=== PATIENT | male | born 1975 | race Caucasian/White ===

== ENCOUNTER 2023-09-07 09:13 | Day surgery (SDC) | payer OTHER ==
[~2023-09-07] VITALS: Ht 170.2 cm; Wt 74.7 kg
[~2023-09-07 09:13] MED LIST: NAPR-885 PO; NS 1,000 ML IV ONE
[2023-09-07 10:41] VITALS: TEMP 97.6
[2023-09-07 11:00] VITALS: O2SAT 97
[2023-09-07 11:05] VITALS: BP 93/67
== END 2023-09-07 11:05 | disposition home or self-care (01) ==
LOC: M OPP 09:13
PROVIDERS: ATTEND Internal Medicine Gastroenterology
DX: Z12.11 Encounter for screening for malignant neoplasm of colon (principal); Z12.12 Encounter for screening for malignant neoplasm of rectum; K64.8 Other hemorrhoids; K64.4 Residual hemorrhoidal skin tags; Z90.49 Acquired absence of other specified parts of digestive tract; Z87.891 Personal history of nicotine dependence; G47.30 Sleep apnea, unspecified

== ENCOUNTER → 2024-09-07 | Outpatient (CLI) | payer OTHER ==
[~2024-09-07] MED LIST changes: -NS 1,000 ML IV ONE
== END ==
LOC: M PLAIMG 14:05
PROVIDERS: ATTEND Internal Medicine
DX: M54.16 Radiculopathy, lumbar region (principal)

== ENCOUNTER 2025-02-26 21:27 | Emergency (ER) | payer OTHER ==
[~2025-02-26] VITALS: Ht 170.2 cm; Wt 82.0 kg
[2025-02-26 23:42] VITALS: TEMP 98
[2025-02-27] MEDS: KETOROLAC 60MG 2ML VIAL IM ONE (02:04)
[2025-02-27 02:14] VITALS: BP 110/60; O2SAT 96
== END 2025-02-27 02:10 | disposition home or self-care (01) ==
LOC: M ED 21:27
DX: S76.311A Strain of muscle, fascia and tendon of the posterior muscle group at thigh level, right thigh, initial encounter (principal); X50.0XXA Overexertion from strenuous movement or load, initial encounter; M54.50 Low back pain, unspecified; M54.2 Cervicalgia; F10.10 Alcohol abuse, uncomplicated; Y92.007 Garden or yard of unspecified non-institutional (private) residence as the place of occurrence of the external cause; Y93.64 Activity, baseball; Y99.9 Unspecified external cause status; Z79.1 Long term (current) use of non-steroidal anti-inflammatories (NSAID)
CPT/HCPCS: 96372; 99284; J1885

== ENCOUNTER → 2025-05-31 | Outpatient (CLI) | payer OTHER | LOC: M RAD 12:21 | PROVIDERS: ATTEND Pain Medicine Interventional Pain Medicine | DX: M54.16 Radiculopathy, lumbar region (principal); M54.12 Radiculopathy, cervical region; M47.812 Spondylosis without myelopathy or radiculopathy, cervical region; M47.816 Spondylosis without myelopathy or radiculopathy, lumbar region ==